=== PATIENT | female | born 1955 | race Caucasian/White ===

== ENCOUNTER 2016-10-25 07:04 | Inpatient (IN) | payer OTHER ==
[2016-10-25] VITALS (14 sets, daily range): BP systolic 88–145; BP diastolic 55–100
[~2016-10-25] VITALS: Ht 160 cm; Wt 98.2 kg
[~2016-10-25 07:04] MED LIST: ASP81CT PO; BUPIVACAINE/EPINEPHRINE 0.5%-1:200,000 (MARCAINE) 30 ML VIAL INJ ONE; CALC-408 PO; CEFOXITIN IV SCH; FEXO-14 PO; FEXO-95 PO; LACTATED RINGERS 1,000 ML IV SCH; MELO-249 PO; MELO15TA14 PO; MULT-868 PO; MULT-884 PO; NFLOSA25TA PO; ONDAN4ODT PO; SODIUM CHLORIDE IV SCH
--- OUTSIDE RECORDS SUMMARY | 2016-10-25 07:07 | XMS REPORT | Continuity of Care Document ---
Author Author [facility] Address Unknown Phone Unavailable Care Team Providers Care Cuff Runner Name Role Phone LORENZA RAMIREZ MD PCP [phone] Insurance Providers Payer Name Policy Number Subscriber Name Relationship [facility] [id number] Kimmie Raygoza 19 Self / Same As Patient Advance Directives Directive Response Recorded Date/Time Advanced Directives Not applicable 10/13/16 9:30am Problems No problem information available. Medications Current Home Medications Medication Dose Units Route Directions Days/Qty Instructions Start Date Multivits,Ca,Minerals/Iron/Fa 1 Each 1 Tab ORAL Daily 10/29/15 Fexofenadine Hcl 180 Mg 180 Mg ORAL Daily 10/13/16 Aspirin 81 Mg 81 Mg ORAL Daily 10/13/16 Meloxicam 15 Mg 15 Mg ORAL Daily 10/13/16 Losartan Potassium (Cozaar) 25 Mg 25 Mg ORAL Daily 10/13/16 Multivits Min/Iron/Fa/Herb#186 1 Each 1 Tab ORAL Daily 10/13/16 Ondansetron Hcl 4 Mg 4 Mg ORAL Every 6 Hr On Schedule as needed for Nausea/ Vomiting 10 10/14/16 Past Home Medications Medication Directions Ordered Status Meloxicam 15 Mg Tablet, 15 Mg Oral Daily 10/29/15 Discontinued Fexofenadine Hcl 60 Mg Tablet, 60 Mg Oral Daily 10/29/15 Discontinued Calcium Carb/Mag Oxide/Vit D3 1 Each Tablet, 1 Each Oral Daily 10/29/15 Discontinued Social History Query Response Start Date Stop Date Smoking Status Never smoker Hospital Discharge Instructions Patient's Instructions Instructions Instructions Call or return if pain increased, or if experiencing persistent nausea or vomiting. Activity Instructions No restrictions. Doctor's Appointment F/U as scheduled in [place] on Sunday with Dr. Haas. Discharge Diet: Low fiber Plan of Care Discharge Date 10/14/16 8:00pm Disposition 01 HOME OR SELF-CARE Prescriptions See Medication Section Care Plan and Goals See Discharge Instructions Section Functional Status Query Response Date Recorded Activity Up ad shaina October 14, 2016 10:31am Assistance Required Standby assistance October 14, 2016 8:09am Level of Conscious Alert Oriented x4 October 13, 2016 9:36pm Movement Moves extremities Steady gait Hand internet marketing executive equal October 13, 2016 9:36pm Allergies, Adverse Reactions, Alerts No known allergies. Immunizations No immunization records. Vital Signs Acute Vital Signs Vital Response Date/Time Temperature (Fahrenheit) 98.0 10/14/2016 7:33pm Pulse 83 bpm 10/14/2016 7:33pm Respirations 18 10/14/2016 7:33pm Height 5 ft 3 in Weight 204 lb Body Mass Index 36.0 kg/m^2 Results Laboratory Results Test Name Result Units Flags Reference Collection Date/Time Result Date/ Time Comments White Blood Count 11.91 10^3uL H 4.0-11.0 10/14/2016 5:30am 10/14/2016 6 :14am Red Blood Count 4.04 10^6uL 4.00-5.00 10/14/2016 5:30am 10/14/2016 6: 14am Hemoglobin 12.1 g/dL 12.0-15.5 10/14/2016 5:30am 10/14/2016 6:14am Hematocrit 37.00 % 35.00-45.00 10/14/2016 5:30am 10/14/2016 6:14am Mean Corpuscular Volume 92 FL 80-100 10/14/2016 5:30am 10/14/2016 6: 14am Mean Corpuscular Hemoglobin 30.0 PG 26.0-34.0 10/14/2016 5:30am 2015 6:14am Mean Corpuscular Hemoglobin Concent 32.7 g/dL 31.0-37.0 10/14/2016 5: 30am 10/14/2016 6:14am Red Cell Distribution Width 15.4 % 11.8-15.6 10/14/2016 5:302015 6:14am Platelet Count 167 10^3uL 150-450 10/14/2016 5:3010/14/2016 6:14am Mean Platelet Volume 10.9 FL H 6.0-9.5 10/14/2016 5:3010/14/2016 6: 14am Neutrophils (%) (Auto) 74 % H 51-67 10/14/2016 5:3010/14/2016 6:14am Lymphocytes (%) (Auto) 17 % L 20-46 10/14/2016 5:3010/14/2016 6:14am Monocytes (%) (Auto) 7 % 3-11 10/14/2016 5:3010/14/2016 6:14am Eosinophils (%) (Auto) 2 % 0-4 10/14/2016 5:10/14/2016 6:14am Basophils (%) (Auto) 0 % 0-2 10/14/2016 5:10/14/2016 6:14am Neutrophils # (Auto) 8.9 X10^3 10/14/2016 5:3010/14/2016 6:14am Lymphocytes # (Auto) 2.0 X10^3 10/14/2016 5:3010/14/2016 6:14am Monocytes # (Auto) 0.8 X10^3 10/14/2016 5:10/14/2016 6:14am Eosinophils # (Auto) 0.2 10^3uL 10/14/2016 5:3010/14/2016 6:14am Basophils # (Auto) 0.0 10^3uL 10/14/2016 5:3010/14/2016 6:14am Sodium Level 148 mmol/L 135-150 10/14/2016 5:3010/14/2016 6:27am Potassium Level 3.4 mmol/L L 3.5-5.1 10/14/2016 5:10/14/2016 6: 27am Chloride Level 109 mmol/L H 98-108 10/14/2016 5:3010/14/2016 6:27am Carbon Dioxide Level 32 mmol/L H 22-29 10/14/2016 5:3010/14/2016 6: 27am Anion Gap 11.1 MEQ/L 3-15 10/14/2016 5:30am 10/14/2016 6:27am Blood Urea Nitrogen 10 mg/dL 7-18 10/14/2016 5:30am 10/14/2016 6:27am Creatinine 0.73 mg/dL 0.6-1.2 10/14/2016 5:30am 10/14/2016 6:27am BUN/Creatinine Ratio 14 10-20 10/14/2016 5:30am 10/14/2016 6:27am Estimat Glomerular Filtration Rate 98.4 10/14/2016 5:30am 2015 6:27am Estimated GFR (Non- 81.3 10/14/2016 5:30am 2015 6:27am Glucose Level 117 mg/dL H 70-110 10/14/2016 5:30am 10/14/2016 6:27am Calcium Level 7.8 mg/dL L 8.8-10.8 10/14/2016 5:30am 10/14/2016 6:27am Procedures No known history of procedures. Encounters Encounter Location Arrival/Admit Date Discharge/Depart Date Attending Provider Discharged Inpatient [facility] 10/13/16 8:36am 10/14/16 8:00pm VARUN ROSA MD
[2016-10-25] MEDS ORDERED: ALFENTANIL 500 MCG/ML (ALFENTA) 5 ML AMP IV ONE (07:21)
[2016-10-25] MEDS ORDERED: MIDAZOLAM 2 MG/2 ML (VERSED) VIAL ONE (07:21)
[2016-10-25] MEDS: SODIUM CHLORIDE FLUSH 3 ML SYR IV PRN (07:59)
[2016-10-25] MEDS ORDERED: PROMETHAZINE 25 MG/ML (PHENERGAN) 1 ML VIAL ONE (08:18)
[2016-10-25] MEDS ORDERED: SODIUM CHLORIDE VIAL (PF) 10 ML IV ONE (08:19)
[2016-10-25] MEDS ORDERED: PROPOFOL 20 ML IV ONE (08:20)
[2016-10-25] MEDS ORDERED: ROCURONIUM 50 MG/5 ML (ZEMURON) VIAL IV ONE ×4 (09:03→15:38)
[2016-10-25] MEDS ORDERED: SUCCINYLCHOLINE 20 MG/ML 10 ML VIAL ONE (09:03)
[2016-10-25 09:16] LABS: BILIRUBIN,URINE Negative (Negative); CLARITY,URINE Clear; COLOR,URINE Yellow; GLUCOSE, URINE (UA) Negative (Negative); LEUKOCYTE ESTERASE, URINE Negative (Negative); PH,URINE 5.5 (5.0 - 8.0); UROBILINOGEN,URINE 0.2 mg/dL (0.2-1.0)
[2016-10-25 09:25] LABS: RBC,URINE 0-2 /HPF; URINE CENTRIFUGED VOLUME 12 mL
[2016-10-25] MEDS ORDERED: CEFOXITIN 2 GM IV ONE (15:33)
[2016-10-25] MEDS ORDERED: KETOROLAC 60 MG/2 ML (TORADOL) VIAL IM ONE (16:32)
[2016-10-25] MEDS ORDERED: HYDROmorphone 2 MG/ML (DILAUDID) 1 ML SYRINGE ONE (16:34)
[2016-10-25] MEDS ORDERED: diphenhydrAMINE 50 MG/ML INJ (BENADRYL) IV PRN (17:05)
[2016-10-25] MEDS ORDERED: NALOXONE 0.4 MG/ML (NARCAN) 1 ML VIAL IV PRN (17:05)
[2016-10-25] MEDS ORDERED: PROMETHAZINE 25 MG/ML (PHENERGAN) 1 ML VIAL IV PRN (17:05)
[2016-10-25] MEDS ORDERED: PROMETHAZINE HCL INJ 12.5 MG in SODIUM CHLORIDE 25 ML IV PRN (17:50)
--- NOTE | 2016-10-25 17:50 | NUR ---
Pt admitted to room 314 via cart from Recovery Room. Pt wakes easily to name. Drowsy. at bedside. Morphine LINUX DEVOPS ENGINEER intact as ordered with loading dose given. IVF's infusing as ordered. IV Zofran scheduled given. VSS. 2 incisions with dressing- janet under dressings. , 8 lap incisions open to air. IV x2 intact. Cormier to DD- emptied by RR before transfer to floor.
[2016-10-25] MEDS: ONDANSETRON 2 MG/ML (Z0FRAN) 2 ML VIAL IV SCH (18:06)
[2016-10-25] MEDS: 0.45% SOD CHLORIDE (1/2 NS) 1,000 ML IV SCH (18:06)
[2016-10-25] MEDS: morphine PCA 30 MG/30 ML VIAL IV PRN (18:10)
--- NOTE | 2016-10-25 18:21 | NUR ---
VS remain stable. at bedside. Olesya RT in room to attach ETCO2 monitor per protocol.
--- NOTE | 2016-10-25 20:37 | NUR ---
Pt on ETCO2 monitor with BARREL FILLER HEAD, ETCO2 34, SPO2 96^ on 2 l/min.
[2016-10-25] MEDS: KETOROLAC 15 MG/ML (TORADOL) 1 ML VIAL IV PRN (21:03)
[2016-10-25] MEDS ORDERED: SODIUM CHLORIDE FLUSH 10 ML ONE (21:05)
[2016-10-26] VITALS (8 sets, daily range): BP systolic 81–110; BP diastolic 53–65
--- NOTE | 2016-10-26 00:45 | NUR ---
Patient has been resting quietly tonight and at this time rates pain 4/10 then moves about in bed and rolls to side. Pain escalates and patient rates it at 6/10. States she had slept and thinks she didn't stay on top of pain with medication. Had just pushed SUPERVISOR BROADLOOM button prior to this assembly instructions writer entering room. Patient's respirations increased and facial grimacing present. States she does not want me to call for pain medication and states she thinks it will settle down. Incision sites checked. Midline dressing has moderate amount of red drainage on it. Other sites are dry and intact.
[2016-10-26] MEDS: 0.45% SOD CHLORIDE (1/2 NS) 1,000 ML IV SCH (00:47)
[2016-10-26] MEDS: ONDANSETRON 2 MG/ML (Z0FRAN) 2 ML VIAL IV SCH ×5 (00:48→23:33)
[2016-10-26] MEDS ORDERED: SODIUM CHLORIDE FLUSH 10 ML ONE ×2 (00:53→09:23)
--- NOTE | 2016-10-26 01:25 | NUR ---
Pain continues to be rated at 6/10. Denies need for more medication, but is using the SHIP LINER.
[2016-10-26] MEDS: KETOROLAC 15 MG/ML (TORADOL) 1 ML VIAL IV PRN ×4 (03:02→21:19)
--- NOTE | 2016-10-26 03:09 | NUR ---
Toradol for pain 04/30. Patient repositioned.
[2016-10-26 06:37] LABS: ANION GAP 9.9 MEQ/L (3-15)
--- NOTE | 2016-10-26 06:40 | NUR ---
Patient pain at 4/10 at this time. Has been using GENERAL PEDIATRICIAN and asking for Toradol appropriately. Has had short periods of rest.
[2016-10-26] MEDS: morphine PCA 30 MG/30 ML VIAL IV PRN ×2 (06:41→21:54)
[2016-10-26 06:43] LABS: BASOPHILS % (AUTO) 0 % (0-2); EOSINOPHILS # (AUTO) 0.1 10^3uL; EOSINOPHILS % (AUTO) 1 % (0-4); LYMPHOCYTES # (AUTO) 1.6 X10^3; MEAN CORPUSCULAR HEMOGLOBIN 30.1 PG (26.0-34.0); MEAN CORPUSCULAR HGB CONC 33.2 g/dL (31.0-37.0); MEAN CORPUSCULAR VOLUME 91 FL (80-100); MEAN PLATELET VOLUME 10.8 FL (6.0-9.5); MONOCYTES # (AUTO) 0.6 X10^3; MONOCYTES % (AUTO) 7 % (3-11); NEUTROPHILS # (AUTO) 6.2 X10^3; NEUTROPHILS % (AUTO) 73 % (51-67); PLATELET COUNT 159 10^3uL (150-450); WHITE BLOOD COUNT 8.44 10^3uL (4.0-11.0)
--- NOTE | 2016-10-26 08:20 | Progress Note-A/P (E) ---
Progress Note Subjective Subjective Pain controlled fairly well overnight. Resting and appears comfortable this morning. No complaints. On 2L NC O2, sat 97%. Objective VS Vital Signs Date Time Temp Pulse Resp B/P Pulse Ox O2 Delivery O2 Flow Rate FiO2 10/26/16 06:18 93 19 97 Nasal cannula 10/26/16 04:00 97.0 81/53 10/26/16 00:10 2.00 I&O I & O Past 24 hrs 10/26/16 07:00 Intake Total 1878 ml Output Total 2425 ml Balance -547 ml Intake IV Total 1878 ml Output Urine Total 2425 ml Current Medications Current Medications Diphenhydramine HCl (Benadryl Inj) 25 mg Q4H PRN IV; Start 10/25/16 at 17:05 Ondansetron HCl (Zofran Inj (Sdv)) 4 mg Q6HR IV Last administered on 10/26/16 06:29; Admin Dose 4 MG; Start 10/25/16 at 18:00 Naloxone HCl (Narcan) 0.1 mg Q2M PRN IV; Start 10/25/16 at 17:05 Enoxaparin Sodium (Lovenox) 40 mg Q24HR SC; Start 10/26/16 at 09:00 Ketorolac Tromethamine 15 mg 15 mg Q6H PRN IV Last administered on 10/26/16 03: 02; Admin Dose 15 MG; Start 10/25/16 at 17:50 Sodium Chloride (1/2 NS) 1,000 ml @ 150 mls/hr Q6H40M IV Last administered on 00:47; Admin Dose 150 MLS/HR; Start 10/25/16 at 17:01 Morphine Sulfate 1 vial 1 vial PRN PRN IV Last administered on 10/26/16 06:41; Admin Dose 1 VIAL; Start 10/25/16 at 17:50 Promethazine HCl/ Sodium Chloride (Phenergan Inj/ NS (Ivpb)) 25.5 ml @ 75 mls/ hr Q6H PRN IV; Start 10/25/16 at 17:50 General Awake, alert, no distress CV S1S2 RRR Lungs Clear bilaterally Abdomen Bowel sounds present, dressings dry and intact Extremities No edema Integumentary No unusual findings Neuro Grossly normal Labs, Most Recent- Laboratory Results Past 24 Hrs 10/25/16 08:45: Urine Bacteria None seen, Urine Bilirubin Negative, Urine Blood Trace-intact, Urine Clarity Clear, Urine Collection Type Catheter, Urine Color Yellow, Urine Glucose (UA) Negative, Urine Ketones Negative, Urine Leukocyte Esterase Negative , Urine Microscopic WBC None seen, Urine Mucus 1+, Urine Nitrite Negative, Urine Protein Negative, Urine RBC 0-2, Urine Specific [place] 1.025, Urine Squamous Epithelial Cells 0-2, Urine Urobilinogen 0.2, Urine pH 5.5, Volume Urine Centrifuged 12 ml 10/25/16 14:50: Hematocrit 35.90, Hemoglobin 12.0 10/26/16 05:40: Hematocrit 32.80, Hemoglobin 10.9, Anion Gap 9.9, BUN/Creatinine Ratio 13, Basophils # (Auto) 0.0, Basophils (%) (Auto) 0, Blood Urea Nitrogen 9, Calcium Level 7.4, Carbon Dioxide Level 24, Chloride Level 110, Creatinine 0.72, Eosinophils # (Auto) 0.1, Eosinophils (%) (Auto) 1, Estimat Glomerular Filtration Rate 100.0, Estimated GFR (Non- 82.6, Glucose Level 98, Lymphocytes # (Auto) 1.6, Lymphocytes (%) (Auto) 18, Mean Corpuscular Hemoglobin 30.1, Mean Corpuscular Hemoglobin Concent 33.2, Mean Corpuscular Volume 91, Mean Platelet Volume 10.8, Monocytes # (Auto) 0.6, Monocytes (%) ( Auto) 7, Neutrophils # (Auto) 6.2, Neutrophils (%) (Auto) 73, Platelet Count 159 , Potassium Level 3.4, Red Blood Count 3.62, Red Cell Distribution Width 14.7, Sodium Level 141, White Blood Count 8.44 24 Hr Result Diagram CBC BMP Last 24 Hrs 10/25/16 14:50 10/26/16 05:40 Assessment POD#1 lap-assisted parastomal hernia repair Plan DC Cormier, clear liquid diet and PO pain meds RUDY SNOWDEN MD Oct 26, 2016 08:20
--- NOTE | 2016-10-26 08:46 | OPERATIVE REPORT ---
DATE OF OPERATION: 10/25/2016 PRE-OPERATIVE DIAGNOSIS: Parastomal hernia POST-OPERATIVE DIAGNOSIS: Parastomal hernia OPERATIVE PROCEDURE: 1. Laparoscopic assisted parastomal hernia repair 2. Laparoscopic lysis of adhesions. SURGEON: Juilo César Haas MD COMPUTER SYSTEMS HARDWARE ANALYST: Mal Schofield MD and YEMI Anne ANESTHESIA: General endotracheal anesthetic INDICATIONS: The patient is a 61-year-old who was recently admitted to the hospital with symptoms resulting from this parastomal hernia. Her symptoms improved, but due to ongoing issues with intermittent nausea and crampy abdominal pain, she presents for repair of this hernia. DESCRIPTION OF PROCEDURE: The patient was informed of the risks and benefits. She agreed to proceed. She was taken to the operating room and placed supine on a standard operating table. She was administered general endotracheal anesthetic and preoperative IV antibiotics. A Cormier catheter was placed to dependent drainage within the bladder. A small Cormier catheter was inserted into her ileostomy and the balloon was insufflated to 5 mL of liquid. Then a 2-0 silk pursestring suture was then placed around the catheter to prevent any drainage. Her abdomen was prepped and draped in standard sterile fashion. Ioban was placed over the abdominal skin. We then made a transverse incision in the left lateral abdomen for our initial trocar site. The open technique was used to access the external oblique fascia and #0 Vicryl stay sutures were placed. The internal oblique fascia was then opened along with the transversalis fascia, and #0 Vicryl stay sutures were placed in the internal oblique fascia. The 10-mm trocar was inserted and CO2 was insufflated to 15 mmHg. There were dense adhesions throughout the mid abdomen that were obstructing our view, but I was able to work the scope superiorly to identify an open area below the spleen and a 5-mm trocar was placed here under direct vision. I was then able to divide some adhesions to free the end of the laparoscope so that better visualization could be utilized. We alternated between the 10-mm 3D laparoscope and the 5 mm 30-degree laparoscope. Adhesions were carefully taken down from the abdominal wall along the left side of the abdomen and in the left lower quadrant. A 5-mm trocar was inserted into the left lower quadrant, and later another 5-mm trocar was inserted in the right upper quadrant. The hernia could be easily seen below the umbilicus near the midline, and the hernia sac was divided near its attachments to the fascia along the left side. Meticulous dissection was undertaken to divide adhesions between the hernia sac and bowel loops and omentum that had entered the hernia defect. Much of the contents consisted of omentum and this was carefully taken down. There was some bleeding that was encountered during this dissection within the omentum and the adjacent mesentery, and this was controlled with the Harmonic scalpel along with some carefully placed laparoscopic clips. After a couple of hours of tedious dissection and lysis of adhesions, we could identify the distal ileum entering the hernia defect going towards the skin. Eventually we were able to clear the entire circumference of the fascial defect of adhesions. I marked the edges of the defect using a spinal needle, which was visualized through the skin laparoscopically, and markings were placed on the Ioban on the surface of the patient's abdomen. The defect, as measured through that technique, even with the abdomen partially desufflated, was much larger than the actual measurements of the defect when we opened and measured it directly later on. We determined that the actual defect measured 5 cm x 7 cm, slightly wider than it was tall. Based on our initial measurements, we inserted a [place]Raffi mesh that was 20 cm x 25 cm with corner sutures of #0 [place]Raffi placed within the mesh. The mesh was inserted through the lateral laparoscopic port site and then using transfascial suture passers, we attempted to pull it up to the abdominal wall on the right side. We were able to pull up the right upper corner of the mesh, but we had difficulty finding the transfascial suture passer when bringing up the lower aspect of the mesh in the right upper quadrant. We did not persist in this as we were not able to identify the impression of the needle as it was partially inserted into the abdominal wall musculature as seen through the laparoscope. Because of this difficulty, and the sheer size of the mesh that was inserted, we decided to attempt to place some of these sutures through an open incision. An incision was made over the left side of the hernia sac, which turned out to be just right of the midline, and measured about 10 cm in length vertically. Dissection was carried forth through the skin and subcutaneous tissue and this hernia sac was entered. The fascial edge was identified and this same piece of mesh was brought out the incision and later returned back into the incision after we had trimmed the edges to make it a bit smaller. We allowed for 3 cm over overlap circumferentially around the defect. We then placed [place]Raffi sutures in the right upper corner of the mesh and within the transversalis fascia approached through the hernia defect via the open incision. A similar suture was placed through the right lower portion of the mesh and through the transversalis fascia in the right lower quadrant. These were then tied and two additional [place]Raffi sutures were placed next to the terminal ileum that was coming up to the stoma to secure the mesh around the bowel and to prevent passage of any other bowel or omentum up to the stoma. We did make sure that we could pass at least 1 finger on either side of the bowel so it wasn't too tight. The mesh was then tucked into the peritoneal cavity in its entirety through the fascial defect and we sewed the middle of the mesh to the left side of the defect with [place]Raffi suture to secure it and keep it from moving from its position. We then sutured the larger incision closed at the skin level with locking Prolene suture to re-insufflate the abdomen for the laparoscopic completion of the procedure. The mesh was next tacked in place circumferentially with care taken to make sure we had adequate overlap in every direction around the defect. Once the tacks were placed, we did attempt to place a transfascial suture on the left side of the mesh, but the [place]Raffi mesh thickness made it difficult to pass the [place]-Raffi suture through it. Rather than persist and risk perforating the bowel, we decided to omit those sutures. That leaves the mesh sutured in place in 3 spots with tacks placed circumferentially. The mesh lay without any tension and provided excellent coverage of the defect. We were careful to orient the mesh so that the rough side was facing the abdominal wall. The lateral 5-mm trocars, which included a 5-mm trocar in the right upper quadrant was removed under direct vision and no bleeding was seen from the abdominal wall. The mesh covered the fascial defect from the larger trocar site, but I did tie the stay sutures to secure the fascia at that site as well. The skin was then closed with subcuticular 4-0 Monocryl at the laparoscopic trocar sites and suture sites. The Prolene was removed from the skin at the larger vertical incision over the hernia sac. The subcutaneous tissue there was closed with interrupted 3-0 Vicryl, and the skin there was closed with janet. The patient tolerated the procedure with no complications. There was approximately 500 mL of estimated blood loss, and she received 5000 mL of crystalloid intraoperatively. Urine output was just under 200 mL over the span of the procedure. She went to recovery in stable condition.
[2016-10-26] MEDS: ENOXAPARIN 40 MG/0.4 ML (LOVENOX) SYR SC SCH (09:21)
[2016-10-26] MEDS: 1/2 NS W/KCL 20 MEQ/L 1,000 ML IV SCH ×2 (09:22→16:24)
--- NOTE | 2016-10-26 11:02 | NUR ---
899-Dr Haas here to see patient. 914-Pt c/o pain rated a "6". Toradol IV given at 921. MS PRODUCTION SUPPORT ENGINEER also in use. Pt's IVF changed at this time. Drsg intact with some drainage noted. 929-Genia Dc'd per Dr. cali. 1000-Pt states Toradol helped pain. Resting well in bed.
[2016-10-26] MEDS: HYDROcodone/ACETAMINOPHEN 2.5MG-108MG/5ML (LORTAB ELIXIR) 5 ML UDC PO PRN (13:37)
--- NOTE | 2016-10-26 13:44 | NUR ---
Pt up to chair for lunch, tolerated well. Up to bathroom, unable to void at this time. Will continue to monitor. Ice chips given and Lortab elixir given for pain rated a "6". Pt assisted back to bed.
--- NOTE | 2016-10-26 14:44 | NUR ---
MED REC COMPLETE--current med list obtained from patient interview (conducted by Phil Rosen, Pharm. D. Candidate 2017).
--- NOTE | 2016-10-26 15:37 | NUR ---
1449-Toradol given for pain at this time. remains at bedside. Ice chips given.
--- NOTE | 2016-10-26 16:53 | NUR ---
1530-Pt up to bathroom, voids 250mls, first void after javed catheter removed.
[2016-10-26] MEDS: NS FLUSH 10 ML PRN IV (17:25)
--- NOTE | 2016-10-26 18:06 | NUR ---
Pt up in chair for supper. denies needs. Family at bedside.
--- NOTE | 2016-10-26 19:02 | NUR ---
Report given to Trevon Georges RN at this time.
[2016-10-26] MEDS: NS FLUSH 3 ML PRN IV (23:33)
[2016-10-27] VITALS (8 sets, daily range): BP systolic 97–142; BP diastolic 51–73
[2016-10-27] MEDS: 1/2 NS W/KCL 20 MEQ/L 1,000 ML IV SCH (00:49)
[2016-10-27] MEDS: KETOROLAC 15 MG/ML (TORADOL) 1 ML VIAL IV PRN (03:12)
[2016-10-27] MEDS: NS FLUSH 3 ML PRN IV (03:13)
[2016-10-27] MEDS: ONDANSETRON 2 MG/ML (Z0FRAN) 2 ML VIAL IV SCH (06:15)
[2016-10-27] MEDS: NS FLUSH 3 ML DAILY IV SCH (08:29)
[2016-10-27] MEDS: ENOXAPARIN 40 MG/0.4 ML (LOVENOX) SYR SC SCH (08:30)
[2016-10-27] MEDS ORDERED: 1/2 NS W/KCL 20 MEQ/L 1,000 ML IV SCH (09:10)
--- NOTE | 2016-10-27 10:18 | Progress Note-A/P (E) ---
Progress Note Subjective Subjective Doing well. Pain controlled. Has emptied stoma bag three times over the last day. Ambulated sparingly. Objective VS Vital Signs Date Time Temp Pulse Resp B/P Pulse Ox O2 Delivery O2 Flow Rate FiO2 10/27/16 08:20 98.2 89 20 115/73 94 Nasal cannula 2L.00 Current Medications Current Medications Diphenhydramine HCl (Benadryl Inj) 25 mg Q4H PRN IV; Start 10/25/16 at 17:05 Ondansetron HCl (Zofran Inj (Sdv)) 4 mg Q6HR IV Last administered on 10/27/16 06:15; Admin Dose 4 MG; Start 10/25/16 at 18:00 Naloxone HCl (Narcan) 0.1 mg Q2M PRN IV; Start 10/25/16 at 17:05 Enoxaparin Sodium (Lovenox) 40 mg Q24HR SC Last administered on 10/27/16 08:30; Admin Dose 40 MG; Start 10/26/16 at 09:00 Morphine Sulfate 1 vial 1 vial PRN PRN IV Last administered on 10/26/16 21:54; Admin Dose 1 VIAL; Start 10/25/16 at 17:50 Promethazine HCl/ Sodium Chloride (Phenergan Inj/ NS (Ivpb)) 25.5 ml @ 75 mls/ hr Q6H PRN IV; Start 10/25/16 at 17:50 Acetaminophen/ Hydrocodone Bitart (Lortab 2.5mg/ 108mg-5ml Elixir) 10 ml Q4H PRN PO Last administered on 10/26/16 13:37; Admin Dose 10 ML; Start 10/26/16 at 08:20 Sodium Chloride (Normal Saline Flush) 3 ml DAILY IV Last administered on 08:29; Admin Dose 3 ML; Start 10/27/16 at 09:00 Sodium Chloride (Normal Saline Flush) 3 ml UD PRN IV Last administered on 03:13; Admin Dose 3 ML; Start 10/26/16 at 09:30 Sodium Chloride 10 ml 10 ml UD PRN IV Last administered on 10/26/16 17:25; Admin Dose 10 ML; Start 10/26/16 at 09:30 Potassium Chloride/Sodium Chloride (1/2 NS w/KCl 20 Meq/L) 1,000 ml @ 30 mls/ hr Q24H IV Last administered on 10/27/16t 09:43; Admin Dose 30 MLS/HR; Start 10/27 at 09:10 General Awake, alert, no distress CV S1S2 RRR Lungs Clear bilaterally Abdomen Incisions clean, dry, intact. Stoma pink and emptying effluent into bag. Extremities No edema Integumentary No unusual findings Neuro Grossly normal Assessment POD#2 lap-assisted parastomal hernia repair Plan DC OPHTHALMIC PATHOLOGIST. Ambulate, advance to soft diet. RUDY SNOWDEN MD Oct 27, 2016 10:17
[2016-10-27] MEDS ORDERED: morphine INJ 2 MG/ML 1 ML SYRINGE IV PRN (10:20)
[2016-10-27] MEDS ORDERED: ONDANSETRON 4 MG (ZOFRAN) ORAL DISSOLVE TAB PO PRN (10:25)
--- NOTE | 2016-10-27 10:32 | NUR ---
1015-Dr Haas here to see patient. 1030-MS BROWNFIELD REDEVELOPMENT SITE MANAGER and IVF Dc'd at this time. Pt to shower.
--- NOTE | 2016-10-27 10:50 | NUR ---
Abdominal drsg changed, pt tolerated well. o2sat 93% on room air, o2 will remain off at this time. Pt sitting in chair, doing well.
--- NOTE | 2016-10-27 14:19 | NUR ---
1400-Walked with ELEVATOR DISPATCHER 1 lap around nursing desk. Pt tolerated well. Denies needs at this time.
[2016-10-27] MEDS ORDERED: HYDR5SOL2 PO (15:58)
[2016-10-27] MEDS: NS FLUSH 10 ML PRN IV (18:34)
--- NOTE | 2016-10-27 18:59 | NUR ---
1840-Pt rates pain a "5". MS 2mg IV given at this time. Pt also feels warm to touch. Temp checked, temp 100.0 temporal. Pt refuses Lortab elixir at this time. Extra covers off patient. remains at bedside. Will report temp to next shift and have them recheck it.
--- NOTE | 2016-10-27 19:06 | NUR ---
Pt rates her pain a "2-3" now. Family at bedside, denies any other needs.
[2016-10-28 00:09] VITALS: BP 127/66
[2016-10-28 04:05] VITALS: BP 116/68
--- NOTE | 2016-10-28 04:28 | NUR ---
At beginning of shift pt was sitting up in bed visiting with family, denied pain or discomfort at that time. Pt is currently resting in bed asleep, does not appear to be in pain or discomfort. SL is patent, no signs of redness, swelling, or infection noted at this time. Dressings to abdomen are clean, dry, and intact. Call light is in reach, will continue to monitor.
[2016-10-28] MEDS: HYDROcodone/ACETAMINOPHEN 2.5MG-108MG/5ML (LORTAB ELIXIR) 5 ML UDC PO PRN (05:55)
--- NOTE | 2016-10-28 07:40 | NUR ---
Pt sitting in chair upon shift assessment. midline dressing intact with slight amount of drainage. Lap sites clean, dry, intact, open to air. Pt denies complaints.
[2016-10-28] MEDS: ENOXAPARIN 40 MG/0.4 ML (LOVENOX) SYR SC SCH (07:55)
[2016-10-28] MEDS: NS FLUSH 3 ML DAILY IV SCH (07:55)
[2016-10-28 08:02] VITALS: BP 98/51
--- NOTE | 2016-10-28 08:15 | NUR ---
IV to RAC leaked. Discontinued; catheter tip intact.
--- NOTE | 2016-10-28 11:15 | NUR ---
Dr Haas and med student into see patient.
[2016-10-28 11:22] VITALS: BP 87/51
--- NOTE | 2016-10-28 11:40 | Progress Note-A/P (E) ---
Progress Note Subjective Subjective Doing well. Dressed and ready to go home. Tolerating diet and ambulation without difficulty. Objective VS Vital Signs Date Time Temp Pulse Resp B/P Pulse Ox O2 Delivery O2 Flow Rate FiO2 10/28/16 11:22 98.1 84 18 87/51 99 Nasal cannula 10/27/16 15:52 0.00 I&O I & O Past 24 hrs 10/28/16 07:00 Intake Total 792 ml Output Total 1400 ml Balance -608 ml Intake Oral 400 ml IV Total 392 ml Output Urine Total 1200 ml Stool Total 200 ml Current Medications Current Medications Diphenhydramine HCl (Benadryl Inj) 25 mg Q4H PRN IV; Start 10/25/16 at 17:05 Naloxone HCl (Narcan) 0.1 mg Q2M PRN IV; Start 10/25/16 at 17:05 Enoxaparin Sodium 40 mg 40 mg Q24HR SC Last administered on 10/28/16 07:55; Admin Dose 40 MG; Start 10/26/16 at 09:00 Promethazine HCl/ Sodium Chloride (Phenergan Inj/ NS (Ivpb)) 25.5 ml @ 75 mls/ hr Q6H PRN IV; Start 10/25/16 at 17:50 Acetaminophen/ Hydrocodone Bitart (Lortab 2.5mg/ 108mg-5ml Elixir) 10 ml Q4H PRN PO Last administered on 10/28/16 05:55; Admin Dose 10 ML; Start 10/26/16 at 08:20 Sodium Chloride (Normal Saline Flush) 3 ml DAILY IV Last administered on 07:55; Admin Dose 3 ML; Start 10/27/16 at 09:00 Sodium Chloride (Normal Saline Flush) 3 ml UD PRN IV Last administered on 03:13; Admin Dose 3 ML; Start 10/26/16 at 09:30 Sodium Chloride (Normal Saline Flush) 10 ml UD PRN IV Last administered on 18:34; Admin Dose 10 ML; Start 10/26/16 at 09:30 Morphine Sulfate (morphine INJ) 2 mg Q3H PRN IV Last administered on 10/27/16 18:34; Admin Dose 2 MG; Start 10/27/16 at 10:20 Ondansetron HCl (Zofran Oral Dissolve) 4 mg Q6H PRN PO; Start 10/27/16 at 10:25 General Awake, alert, no distress CV S1S2 RRR Lungs Clear bilaterally Abdomen Incisions clean, dry, intact. Stoma pink and emptying effluent into bag. Extremities No edema Integumentary No unusual findings Neuro Grossly normal Assessment POD#3 lap-assisted parastomal hernia repair Plan DC home with f/u in clinic in [place] for staple removal. RUDY SNOWDEN MD Oct 28, 2016 11:40
--- NOTE | 2016-10-28 11:43 | Discharge Instructions (E) ---
Discharge Instructions Instructions Call if experiencing increasing pain, persistent nausea or vomiting, lack of output from stoma, or redness or drainage worsening at any of the incisions. Activity Instructions No lifting more than 20lbs for three weeks. Walking, stair climbing, and light exercise are fine. Doctor's Appointment Return to clinic in [place] on for staple removal. Call [facility] for appointment ([phone]). Discharge Diet: Low fiber RUDY SNOWDEN MD Oct 28, 2016 11:43
--- NOTE | 2016-10-28 12:00 | NUR ---
Pt given discharge instructions. Verbalizes understanding. SL to LH discontinued; catheter tip intact.
--- NOTE | 2016-10-28 12:06 | NUR ---
Pt discharges via w/c at this time. Accompanied by [employer].
--- NOTE | 2016-10-30 11:22 | DISCHARGE SUMMARY ---
ADMISSION DATE: 10/25/2016 DISCHARGE DATE: 10/28/2016 DISCHARGE DIAGNOSES: Parastomal hernia PROCEDURES PERFORMED: Laparoscopic assisted parastomal hernia repair by Dr. Haas. PRESENT ILLNESS AND POSITIVE PHYSICAL FINDINGS: The patient is a 61-year-old who has a symptomatic parastomal hernia that requires repair and she presented electively this hospitalization for that procedure. SIGNIFICANT X-RAY AND LABORATORY DATA: On October 25, hemoglobin was 12.0 at 14:50. On October 26, hemoglobin was 10.9. BUN was 9 and creatinine was 0.7. HOSPITAL COURSE AND TREATMENT: The patient was taken to the operating room for the procedure, which was performed using a combination of laparoscopy and an open incision over the hernia sac to reduce the hernia contents and provide access for lateral placement of the mesh around the terminal ileum. The procedure was completed then laparoscopically and postoperatively the patient was admitted to the medical/surgical floor. Her pain was controlled with morphine [employer] the first evening and the next day she was started on Pavo elixir in addition to morphine and Toradol as needed. By postoperative day 2 she was ambulating the halls without difficulty and her diet was advanced from clear liquids to low fiber diet. By postoperative day 3 her pain was well controlled with Pavo elixir and she was no longer requiring any IV pain medicine. She was ambulating the hallways without difficulty and tolerating her diet well enough to be able to go home. She was deemed ready for discharge. CONDITION ON DISCHARGE: Stable. DISCHARGE INSTRUCTIONS: She is to follow up in the clinic in [place] on November 07 for staple removal and to avoid heavy lifting or straining for 3 weeks. DISCHARGE MEDICATIONS: She was to continue her home medications including Losartan, and a prescription was given for Pavo elixir 200 mL to be used 10 mL q4 hours p.r.n.
== END 2016-10-28 12:06 | disposition home or self-care (01) | DRG 355 ==
LOC: ASC 07:04 → MED/SURG 17:51
PROVIDERS: ADMIT Surgery; ATTEND Surgery
PROC: 0WUF0JZ Supplement Abdominal Wall with Synthetic Substitute, Open Approach (ICD-10-PCS; principal; 2016-10-25)
DX: K43.3 Parastomal hernia with obstruction, without gangrene (principal); I10 Essential (primary) hypertension; Z43.2 Encounter for attention to ileostomy; Z90.49 Acquired absence of other specified parts of digestive tract; Z79.82 Long term (current) use of aspirin
CPT/HCPCS: 36415; 80048; 81003; 81015; 85014; 85018; 85025; 86850; 86900; 86901; 86920; 94770